=== PATIENT | female | born 1985 | race Caucasian/White ===

== ENCOUNTER 2017-07-11 11:40 | Observation (INO) | payer OTHER ==
[~2017-07-11] VITALS: Ht 172.7 cm; Wt 115.7 kg
== END 2017-07-11 21:43 | disposition home or self-care (01) ==
LOC: EDBD 11:40 → MLD 11:40
PROVIDERS: ADMIT Obstetrics & Gynecology; ATTEND Obstetrics & Gynecology
DX: O46.92 Antepartum hemorrhage, unspecified, second trimester (principal); Z3A.27 27 weeks gestation of pregnancy
CPT/HCPCS: 76805; 81000; G0378; Q0092